=== PATIENT | male | born 1985 | race Caucasian/White ===

== ENCOUNTER → 2023-07-31 08:09 | Outpatient (CLI) | payer OTHER, SELFPAY ==
--- NOTE | ~2023-07-31 | MR_ITS ---
EXAMINATION: MR shoulder RT wo con DATE: 07/31/2023 09:06 INDICATION: Right shoulder pain TECHNIQUE: Magnetic resonance imaging (MRI) of the right shoulder was performed without intravenous c ontrast. Sequences included axial PD-weighted FS FSE, coronal oblique PD-weighted FS FSE, coronal obl ique T2-weighted FS FSE, sagittal PD-weighted FS FSE, and sagittal T1-weighted SE. COMPARISON: None. FINDINGS: Coracoacromial arch: The acromion undersurface is curved in morphology (type II). The coracoacromial ligament is normal. M ild acromioclavicular osteoarthritis. Rotator cuff: Mild supraspinatus tendinopathy without tear. Minimal infraspinatus and subscapularis tendinopathy. T eres minor tendon is normal. Normal rotator cuff muscle bulk and signal. Biceps tendon, glenoid labrum and glenohumeral cartilage: Long head of the biceps tendon is normal. Small tear along the peripheral free edge of the posterosup erior glenoid labrum. There is additional linear tear at the base of the anteroinferior labrum. Parti al-thickness cartilage loss with smooth chondral surface and without degenerative subchondral changes along the inferomedial aspect of the humeral head. Additional mild partial-thickness cartilage loss with smooth chondral surface at the central to cephalad aspect of the glenoid. Fluid: Physiologic amount of fluid in the glenohumeral joint and biceps tendon sheath. No loose osteochondr al bodies. Very small amount of fluid in the subacromial/subdeltoid bursa consistent with minimal bur sitis. Bones: Normal marrow signal with no edema, fracture or abnormal marrow replacing process. IMPRESSION: 1. Mild glenohumeral osteoarthritis with tear at the base of the anteroinferior labrum and along the peripheral free edge of the posterior superior labrum. 2. Mild supraspinatus and minimal infraspinatus and subscapularis tendinopathy without tear. 3. Mild acromioclavicular osteoarthritis. 4. Minimal subacromial/subdeltoid bursitis. Reviewed, dictated and finalized at location A. [facility]
== END ==
PROVIDERS: Visit Provider Orthopaedic Surgery
DX: M19.011 Primary osteoarthritis, right shoulder (principal); M67.813 Other specified disorders of tendon, right shoulder; M75.51 Bursitis of right shoulder
CPT/HCPCS: 73221